=== PATIENT | female | born 1955 | race Caucasian/White ===

== ENCOUNTER 2018-06-09 14:57 | Outpatient (CLI) | payer OTHER, SELFPAY ==
--- NOTE | 2018-06-09 15:01 | DI.RAD_ITS ---
SYMPTOMS/DIAGNOSIS: COUGH, ? PNEUMONIA PA AND LATERAL CHEST: Comparison 11/19/15. The heart size and pulmonary vasculature are stable and within normal limits. There are infiltrates seen in the lower lobes bilaterally and a faint opacity in the right upper lobe. This may reflect multi-focal pneumonia. No effusions or pneumothoraces are identified. Degenerative changes are seen in the spine. IMPRESSION: Multi-focal pneumonia. A follow up chest x-ray is recommended to document complete resolution of the opacities particularly the right upper lobe opacity and to exclude other underlying etiologies.
== END 2018-06-09 15:17 ==
PROVIDERS: PCP Nurse Practitioner Family; Visit Provider Nurse Practitioner Family
DX: R05 Cough (principal); J18.9 Pneumonia, unspecified organism
CPT/HCPCS: 71046

== ENCOUNTER 2018-07-21 08:37 | Outpatient (CLI) | payer OTHER, SELFPAY ==
[2018-07-21 10:32] LABS: ALT 28 U/L (12-78); AST 23 U/L (15-37); Albumin 4.3 g/dL (3.4-5.0); Alkaline Phosphatase 80 U/L (46-116); Anion Gap 10.1 mmol/L (3-11); BUN 23 mg/dL (7-18); Bilirubin, Total 0.5 mg/dL (0.2-1.0); CO2 27.9 mmol/L (21.0-32.0); CREATININE 1.09 mg/dL (0.55-1.02); Calcium 9.4 mg/dL (8.5-10.1); Chloride 103 mmol/L (98-107); Estimated GFR 50.86 (mL/min/1.73m2); Glucose 76 mg/dL (70-100); Potassium 3.5 mmol/L (3.5-5.1); Sodium 141 mmol/L (136-145); TSH (W/Ref FT4) 6.47 uIU/mL (0.358-3.74); Total Protein 7.4 g/dL (6.4-8.2)
[2018-07-21 10:55] LABS: FREE T4 0.92 ng/dL (0.76-1.46)
== END 2018-07-21 08:57 ==
PROVIDERS: PCP Nurse Practitioner Family; Visit Provider Nurse Practitioner Family
DX: E03.9 Hypothyroidism, unspecified (principal); Z13.1 Encounter for screening for diabetes mellitus; Z51.81 Encounter for therapeutic drug level monitoring
CPT/HCPCS: 36415; 80053; 84439; 84443

== ENCOUNTER 2018-08-07 00:22 | Outpatient (CLI) | payer OTHER, SELFPAY ==
--- NOTE | 2018-08-07 10:39 | DI.RAD_ITS ---
SYMPTOM/DIAGNOSIS: F/U PNEUMONIA, J18.9 PA AND LATERAL CHEST: Comparison is made with 06/09/18. The heart size is normal. The lungs are well inflated and clear. The previously noted infiltrates have cleared. There is minimal residual left lower lobe scarring. IMPRESSION: Interval resolution of previously noted infiltrates.
== END 2018-08-07 00:42 ==
PROVIDERS: PCP Nurse Practitioner Family; Visit Provider Nurse Practitioner Family
DX: J18.9 Pneumonia, unspecified organism (principal)
CPT/HCPCS: 71046

== ENCOUNTER 2019-01-11 07:21 | Outpatient (CLI) | payer OTHER, SELFPAY ==
[2019-01-11 09:04] LABS: TSH (W/Ref FT4) 6.63 uIU/mL (0.358-3.74)
[2019-01-11 09:41] LABS: FREE T4 0.86 ng/dL (0.76-1.46)
== END 2019-01-11 07:41 ==
PROVIDERS: PCP Nurse Practitioner Family; Visit Provider Nurse Practitioner Family
DX: E03.9 Hypothyroidism, unspecified (principal)
CPT/HCPCS: 36415; 84439; 84443

== ENCOUNTER 2019-04-17 09:35 | Outpatient (CLI) | payer OTHER, SELFPAY ==
[2019-04-17 10:59] LABS: TSH (W/Ref FT4) 1.38 uIU/mL (0.36-3.74)
== END 2019-04-17 09:55 ==
PROVIDERS: PCP Nurse Practitioner Family; Visit Provider Nurse Practitioner Family
DX: E03.9 Hypothyroidism, unspecified (principal)
CPT/HCPCS: 36415; 80048; 80061; 84443

== ENCOUNTER 2020-01-18 08:14 | Outpatient (CLI) | payer OTHER, SELFPAY ==
[2020-01-20 17:23] LABS: COVID-19 RT-PCR Result NEGATIVE (Negative)
== END 2020-01-18 08:34 ==
PROVIDERS: PCP Nurse Practitioner Family; Visit Provider Ophthalmology
DX: Z11.59 Encounter for screening for other viral diseases (principal)
CPT/HCPCS: U0003

== ENCOUNTER 2020-04-14 01:26 | Outpatient (CLI) | payer OTHER, SELFPAY ==
[2020-04-14 11:18] LABS: Anion Gap 9.7 mmol/L (3-11); BUN 18 mg/dL (7-18); CO2 28.3 mmol/L (21.0-32.0); CREATININE 0.97 mg/dL (0.55-1.02); Calcium 9.1 mg/dL (8.5-10.1); Calculated LDL 164 mg/dL (<100); Chloride 102 mmol/L (98-107); Cholesterol 267 mg/dL (<200); Estimated GFR 57.82 (mL/min/1.73m2); Glucose 101 mg/dL (74-106); HDL Cholesterol 86 mg/dL (40-60); Potassium 4.2 mmol/L (3.5-5.1); Sodium 140 mmol/L (136-145); TSH (W/Ref FT4) 2.84 uIU/mL (0.36-3.74); Triglyceride 85 mg/dL (<150)
== END 2020-04-14 01:46 ==
PROVIDERS: PCP Nurse Practitioner Family; Visit Provider Nurse Practitioner Family
DX: E03.9 Hypothyroidism, unspecified (principal); E78.5 Hyperlipidemia, unspecified; Z13.1 Encounter for screening for diabetes mellitus
CPT/HCPCS: 36415; 80048; 80061; 84443

== ENCOUNTER 2020-10-29 03:43 | Outpatient (CLI) | payer MEDICARE, OTHER, SELFPAY ==
[2020-10-29 09:22] LABS: BUN 17 mg/dL (7-18); CREATININE 0.9 mg/dL (0.55-1.02); Calcium 9.3 mg/dL (8.5-10.1); Chloride 103 mmol/L (98-107); Glucose 92 mg/dL (74-106); Potassium 4.2 mmol/L (3.5-5.1); Sodium 140 mmol/L (136-145)
== END 2020-10-29 03:44 | disposition home or self-care (01) ==
LOC: LBO 03:43
PROVIDERS: PCP Nurse Practitioner Family; Visit Provider Nurse Practitioner Family
DX: N28.9 Disorder of kidney and ureter, unspecified (principal)
CPT/HCPCS: 80048

== ENCOUNTER 2020-11-25 01:40 | Outpatient (CLI) | payer MEDICARE, OTHER, SELFPAY ==
--- NOTE | 2020-11-25 07:15 | DI.RAD_ITS ---
Exam(s) XR SHOULDER LT COMPLETE 2+V EXAM: XR SHOULDER LT COMPLETE 2+V CLINICAL HISTORY: Chronic L should pain ?OA vs. [id number] PAIN LT SHOUDLER. TECHNIQUE: 2D digital imaging was performed. COMPARISON: No exams were available for comparison FINDINGS: BONES: No acute fracture is present. No bony destructive lesion is seen. JOINTS: No dislocation present. Minimal degenerative changes of the AC joint and glenohumeral joint. SOFT TISSUE: Normal. No tendon or joint space calcifications are seen. IMPRESSION: Mild degenerative changes. DATA REPOSITORY: RADIATION DOSE DELIVERED:
--- NOTE | 2020-11-25 13:15 | DI.DEXA_ITS ---
Exam(s) XR DEXA BONE DENSITY W/WO GERALD EXAM: XR DEXA BONE DENSITY W/WO GERALD CLINICAL HISTORY: Screening for osteoporosis Z13.820, Z78.0 ASYMPTOMATIC MENOPAUSAL STATE TECHNIQUE: [employer] C densitometer COMPARISON: No exams were available for comparison FINDINGS: Lateral view of the thoracic and lumbar spine shows no evidence of compression fractures. Bone mineral density measurements of the lumbar spine correspond to a total T-score of -2.0, consist ent with osteopenia. Bone mineral density measurements of the left hip correspond to a total T-score of -1.9. The femora l neck T-score is -2.0, consistent with osteopenia. The left forearm bone mineral density measurements correspond to a T-score of the distal 3rd of -2.4 , consistent with osteopenia.. IMPRESSION: Osteopenia of the lumbar spine, left hip and left forearm. 10 year risk of major osteoporotic fractu re 10 percent. Ten year risk of hip fracture 1.5 percent.
== END 2020-11-25 02:00 ==
PROVIDERS: PCP Nurse Practitioner Family; Visit Provider Nurse Practitioner Family
DX: M85.88 Other specified disorders of bone density and structure, other site (principal); Z78.0 Asymptomatic menopausal state; M25.512 Pain in left shoulder; M19.012 Primary osteoarthritis, left shoulder
CPT/HCPCS: 77080; 73030

== ENCOUNTER 2021-04-30 02:04 | Outpatient (CLI) | payer MEDICARE, SELFPAY ==
[2021-04-30 09:06] LABS: Anion Gap 7.9 mmol/L (3-11); BUN 18 mg/dL (7-18); CO2 29.1 mmol/L (21.0-32.0); CREATININE 0.9 mg/dL (0.55-1.02); Chloride 103 mmol/L (98-107); Glucose 94 mg/dL (74-106); Potassium 3.9 mmol/L (3.5-5.1); Sodium 140 mmol/L (136-145); TSH (W/Ref FT4) 2.72 uIU/mL (0.36-3.74)
== END 2021-04-30 02:05 | disposition home or self-care (01) ==
LOC: LBO 02:04
PROVIDERS: PCP Nurse Practitioner Family; Visit Provider Nurse Practitioner Family
DX: E03.9 Hypothyroidism, unspecified (principal); Z13.1 Encounter for screening for diabetes mellitus; Z87.448 Personal history of other diseases of urinary system
CPT/HCPCS: 36415; 80048; 84443

== ENCOUNTER 2021-07-07 02:17 | Outpatient (CLI) | payer MEDICARE, OTHER, SELFPAY ==
[2021-07-08 03:21] LABS: COVID-19 RT-PCR UVMMC Result Negative (Negative)
== END 2021-07-07 02:18 | disposition home or self-care (01) ==
PROVIDERS: PCP Nurse Practitioner Family; Visit Provider Nurse Practitioner Family
DX: Z20.822 Contact with and (suspected) exposure to COVID-19 (principal)
CPT/HCPCS: U0003; U0005

== ENCOUNTER 2022-03-25 03:49 | Outpatient (CLI) | payer MEDICARE, SELFPAY ==
[2022-03-25 08:02] LABS: Abs Immature Grans 0.01 10^3/uL (0.0-0.06); Absolute Basophil Count 0.02 10^3/uL (0.0-0.2); Absolute Eosinophil Count 0.13 10^3/uL (0.0-0.7); Absolute Neutrophil Count 3.53 10^3/uL (1.2-6.7); Basophils % 0.3; Eosinophils % 2.2; HCT 40.1 % (36.0-46.0); HGB 13.9 g/dL (11.2-15.7); Immature Grans % 0.2; Lymphocytes % 26.7; MCH 33.3 pg (27.0-33.0); MCHC 34.7 % (32.0-36.0); MCV 96 fL (80-95); MPV 9.8 fL (8.0-11.0); Monocytes % 11.7; Neutrophils % 58.9; Platelet Count 238 10^3/uL (130-400); RBC 4.17 10^6/uL (3.93-5.22); RDW 12.1 % (11.7-14.6); RDW-SD 42.8 fL; WBC 5.99 10^3/uL (4.4-10.8)
[2022-03-25 08:04] LABS: Prothrombin Time 9.9 sec (9.3-11.0)
[2022-03-25 09:09] LABS: ALT 29 U/L (14-59); AST 16 U/L (15-37); Alkaline Phosphatase 66 U/L (46-116); Anion Gap 7.3 mmol/L (3-11); BUN 19 mg/dL (7-18); Bilirubin, Total 0.5 mg/dL (0.2-1.0); CO2 30.7 mmol/L (21.0-32.0); CREATININE 0.8 mg/dL (0.55-1.02); Calcium 9.3 mg/dL (8.5-10.1); Chloride 101 mmol/L (98-107); Estimated GFR 81.21 (mL/min/1.73m2); Glucose 92 mg/dL (74-106); Potassium 3.7 mmol/L (3.5-5.1); Sodium 139 mmol/L (136-145); TSH (W/Ref FT4) 2.23 uIU/mL (0.36-3.74); Total Protein 7.7 g/dL (6.4-8.2)
== END 2022-03-25 03:50 | disposition home or self-care (01) ==
LOC: LBO 03:49
PROVIDERS: PCP Nurse Practitioner Family; Visit Provider Nurse Practitioner Family
DX: R23.3 Spontaneous ecchymoses (principal); R79.89 Other specified abnormal findings of blood chemistry; E03.9 Hypothyroidism, unspecified
CPT/HCPCS: 36415; 80053; 84443; 85025; 85610

== ENCOUNTER 2022-07-22 11:30 | Outpatient (REF) | payer MEDICARE, SELFPAY ==
[2022-07-24 01:43] LABS: COVID-19 RT-PCR UVMMC Result Negative (Negative)
[2022-07-24 01:47] LABS: Influenza A RNA Result Negative (Negative); Influenza B RNA Result Negative (Negative)
[2022-07-24 11:05] LABS: RSV RNA Result Positive (Negative)
== END 2022-07-22 11:31 | disposition home or self-care (01) ==
LOC: LBN 11:30
PROVIDERS: PCP Nurse Practitioner Family; Visit Provider Nurse Practitioner Family
DX: J02.9 Acute pharyngitis, unspecified (principal); R05.9 Cough, unspecified; R51.9 Headache, unspecified; Z20.822 Contact with and (suspected) exposure to COVID-19
CPT/HCPCS: 87631; U0003

== ENCOUNTER 2023-03-11 01:41 | Outpatient (CLI) | payer MEDICARE, SELFPAY ==
[2023-03-11 12:38] LABS: Anion Gap 7.8 mmol/L (3-11); BUN 17 mg/dL (7-18); CO2 26.2 mmol/L (21.0-32.0); CREATININE 1.1 mg/dL (0.55-1.02); Calcium 9.2 mg/dL (8.5-10.1); Chloride 104 mmol/L (98-107); Estimated GFR 55.07 (mL/min/1.73m2); Glucose 102 mg/dL (74-106); Potassium 3.8 mmol/L (3.5-5.1); Sodium 138 mmol/L (136-145); TSH (W/Ref FT4) 3.94 uIU/mL (0.36-3.74)
[2023-03-11 13:03] LABS: FREE T4 0.95 ng/dL (0.76-1.46)
== END 2023-03-11 01:42 | disposition home or self-care (01) ==
LOC: LOS 01:41
PROVIDERS: PCP Nurse Practitioner Family; Visit Provider Nurse Practitioner Family
DX: Z13.1 Encounter for screening for diabetes mellitus (principal); E03.9 Hypothyroidism, unspecified
CPT/HCPCS: 36415; 80048; 84439; 84443

== ENCOUNTER 2023-10-27 05:48 | Outpatient (CLI) | payer MEDICARE, SELFPAY ==
[2023-10-27 14:46] LABS: Anion Gap 11.5 mmol/L (3-11); BUN 23 mg/dL (7-18); CO2 26.5 mmol/L (21.0-32.0); CREATININE 1.2 mg/dL (0.55-1.02); Chloride 104 mmol/L (98-107); Estimated GFR 49.31 (mL/min/1.73m2); Glucose 135 mg/dL (74-106); Potassium 4.1 mmol/L (3.5-5.1); Sodium 142 mmol/L (136-145); TSH (W/Ref FT4) 1.85 uIU/mL (0.36-3.74)
== END 2023-10-27 05:49 | disposition home or self-care (01) ==
PROVIDERS: PCP Nurse Practitioner Family; Visit Provider Student in an Organized Health Care Education/Training Program
DX: N28.9 Disorder of kidney and ureter, unspecified (principal); R79.89 Other specified abnormal findings of blood chemistry
CPT/HCPCS: 80048; 84443

== ENCOUNTER 2024-04-02 03:09 | Outpatient (CLI) | payer MEDICARE, OTHER, SELFPAY ==
[2024-04-02 07:54] LABS: Abs Immature Grans 0.02 10^3/uL (0.0-0.06); Absolute Basophil Count 0.03 10^3/uL (0.0-0.2); Absolute Eosinophil Count 0.16 10^3/uL (0.0-0.7); Absolute Monocyte Count 0.79 10^3/uL (0.1-0.8); Absolute Neutrophil Count 2.95 10^3/uL (1.2-6.7); Basophils % 0.5 %; Eosinophils % 2.8 %; HCT 41.8 % (36.0-46.0); HGB 13.9 g/dL (11.2-15.7); Immature Grans % 0.4 %; Lymphocytes % 30.1 %; MCH 32.9 pg (27.0-33.0); MCHC 33.3 % (32.0-36.0); MCV 99 fL (80-95); MPV 10.2 fL (8.0-11.0); Neutrophils % 52.2 %; Platelet Count 234 10^3/uL (130-400); RBC 4.22 10^6/uL (3.93-5.22); RDW 12.7 % (11.7-14.6); RDW-SD 46.4 fL; WBC 5.65 10^3/uL (4.4-10.8)
[2024-04-02 08:39] LABS: ALT 28 U/L (14-59); AST 22 U/L (15-37); Albumin 3.9 g/dL (3.4-5.0); Alkaline Phosphatase 66 U/L (46-116); Anion Gap 10.3 mmol/L (3-11); BUN 19 mg/dL (7-18); Bilirubin, Total 0.62 mg/dL (0.2-1.0); CO2 29.7 mmol/L (21.0-32.0); CREATININE 1.1 mg/dL (0.55-1.02); Calcium 9.3 mg/dL (8.5-10.1); Calculated LDL 166 mg/dL (<100); Chloride 102 mmol/L (98-107); Cholesterol 276 mg/dL (<200); Estimated GFR 54.73 (mL/min/1.73m2); Glucose 96 mg/dL (74-106); HDL Cholesterol 94 mg/dL (40-60); Sodium 142 mmol/L (136-145); Total Protein 7.6 g/dL (6.4-8.2); Triglyceride 81 mg/dL (<150)
== END 2024-04-02 03:10 | disposition home or self-care (01) ==
LOC: LBO 03:10
PROVIDERS: Absent Provider Nurse Practitioner; PCP Nurse Practitioner Family; Referring Provider Nurse Practitioner; Visit Provider Nurse Practitioner
DX: E78.5 Hyperlipidemia, unspecified (principal); J45.909 Unspecified asthma, uncomplicated; E03.9 Hypothyroidism, unspecified; E11.9 Type 2 diabetes mellitus without complications
CPT/HCPCS: 36415; 80053; 80061; 83036; 85025

== ENCOUNTER 2024-06-26 03:38 | Outpatient (CLI) | payer MEDICARE, OTHER, SELFPAY ==
[2024-06-26 08:54] LABS: ALT 25 U/L (14-59); AST 19 U/L (15-37); Albumin 3.8 g/dL (3.4-5.0); Alkaline Phosphatase 72 U/L (46-116); Anion Gap 8.4 mmol/L (3-11); BUN 17 mg/dL (7-18); Bilirubin, Total 0.35 mg/dL (0.2-1.0); CO2 29.6 mmol/L (21.0-32.0); Calcium 9.2 mg/dL (8.5-10.1); Chloride 105 mmol/L (98-107); Estimated GFR 61.36 (mL/min/1.73m2); Glucose 96 mg/dL (74-106); Magnesium 2.1 mg/dL (1.8-2.4); Potassium 3.8 mmol/L (3.5-5.1); Sodium 143 mmol/L (136-145); TSH (W/Ref FT4) 2.77 uIU/mL (0.36-3.74); Total Protein 7.5 g/dL (6.4-8.2)
[2024-07-02 17:00] LABS: Apolipoprotein B, Serum 111 mg/dL (48-124); Beta VLDL Cholesterol Not Detected mg/dL (<15); Beta VLDL Triglycerides Not Detected mg/dL (<15); Cholesterol, Total, CDC 270 mg/dL; Chylomicron Cholesterol Not Detected; Chylomicron Triglycerides Not Detected; HDL Cholesterol, CDC 80 mg/dL (>=50); LDL Cholesterol 164 mg/dL; LDL Triglycerides 37 mg/dL (<=50); Lp(a) Cholesterol <5 mg/dL (<5); LpX Not detected; Triglycerides, CDC 101 mg/dL; VLDL Cholesterol 26 mg/dL (<30); VLDL Triglycerides 47 mg/dL (<120)
== END 2024-06-26 03:39 | disposition home or self-care (01) ==
LOC: LBO 03:38
PROVIDERS: PCP Nurse Practitioner Family; Referring Provider Nurse Practitioner Family; Visit Provider Nurse Practitioner Family
DX: R25.2 Cramp and spasm (principal); E78.5 Hyperlipidemia, unspecified; E78.00 Pure hypercholesterolemia, unspecified; E03.8 Other specified hypothyroidism
CPT/HCPCS: 36415; 80053; 80061; 82172; 82664; 83735; 84443

== ENCOUNTER 2024-07-27 11:46 | Outpatient (CLI) | payer MEDICARE, OTHER, SELFPAY ==
[2024-07-27 11:10] LABS: Anion Gap 6.8 mmol/L (3-11); BUN 17 mg/dL (7-18); CO2 27.2 mmol/L (21.0-32.0); CREATININE 0.9 mg/dL (0.55-1.02); Calcium 9.5 mg/dL (8.5-10.1); Chloride 106 mmol/L (98-107); Estimated GFR 69.64 (mL/min/1.73m2); Glucose 101 mg/dL (74-106); Potassium 3.7 mmol/L (3.5-5.1); Sodium 140 mmol/L (136-145)
[2024-08-03 09:33] LABS: Misc Referral (MAYO) See Comments
== END 2024-07-27 11:47 | disposition home or self-care (01) ==
LOC: LBO 11:55
PROVIDERS: PCP Nurse Practitioner Family; Visit Provider Nurse Practitioner Family
DX: R25.2 Cramp and spasm (principal); E78.5 Hyperlipidemia, unspecified
CPT/HCPCS: 80048; 85240; 85246; 85250; 85291; 85379; 85384; 85390; 85397; 85610; 85670; 85730

== ENCOUNTER 2024-08-14 02:05 | Outpatient (CLI) | payer MEDICARE, OTHER, SELFPAY ==
--- NOTE | 2024-08-14 | DI.US_ITS ---
Exam(s) US RENAL EXAM: US RENAL CLINICAL HISTORY: N18.30 Stage 3 chronic kidney disease,unspecified whether stage 3a or 3bCKD TECHNIQUE: Ultrasound of both kidneys performed using standard protocol. COMPARISON: US ABDOMEN ULTRASOUND (P) from 12/04/2015 FINDINGS: RIGHT KIDNEY: Measures 8.3 cm in length. No cysts evident. Normal cortical thickness and corticomedullary different iation .No solid masses No intrarenal calculi nor hydronephrosis. LEFT KIDNEY: Measures 9.2 cm in length. No cysts evident. Normal cortical thickness and corticomedullary differen tiaion. No solids masses. There is 4 x 6 mm echogenic focus superior pole the left kidney, possibly a small calculus. No hydronephrosis. URINARY BLADDER: Prevoid volume is 17.4 cc Postvoid volume is 0 cc No evidence of bladder mass nor diverticuli. Ureterovesical jets: Both identified and appear symmetrical IMPRESSION: 1. No significant ultrasound findings in the right kidney. 2. Small hyperechoic focus in the superior pole the left kidney which may possibly be a small nonobs tructive calculus at this level. No other focal left kidney findings and there is no hydronephrosis on either side 3. No obvious abnormality in the urinary bladder. DATA REPOSITORY:
== END 2024-08-14 02:25 ==
LOC: DI 02:05
PROVIDERS: PCP Nurse Practitioner Family; Visit Provider Registered Nurse Nephrology
DX: N18.30 Chronic kidney disease, stage 3 unspecified (principal)
CPT/HCPCS: 76770

== ENCOUNTER 2024-09-03 02:06 | Outpatient (CLI) | payer MEDICARE, OTHER, SELFPAY ==
[2024-09-07 17:24] LABS: Apolipoprotein B, Serum 72 mg/dL (48-124); Beta VLDL Cholesterol Not Detected mg/dL (<15); Beta VLDL Triglycerides Not Detected mg/dL (<15); Cholesterol, Total, CDC 201 mg/dL; Chylomicron Cholesterol Not Detected; Chylomicron Triglycerides Not Detected; HDL Cholesterol, CDC 94 mg/dL (>=50); LDL Cholesterol 90 mg/dL; LDL Triglycerides 28 mg/dL (<=50); Lp(a) Cholesterol <5 mg/dL (<5); LpX Not detected; Triglycerides, CDC 85 mg/dL; VLDL Cholesterol 17 mg/dL (<30); VLDL Triglycerides 37 mg/dL (<120)
== END 2024-09-03 02:07 | disposition home or self-care (01) ==
PROVIDERS: PCP Nurse Practitioner Family; Visit Provider Nurse Practitioner Family
DX: E78.00 Pure hypercholesterolemia, unspecified (principal)
CPT/HCPCS: 36415; 80061; 82172; 82664

== ENCOUNTER 2024-10-09 02:34 | Outpatient (CLI) | payer MEDICARE, OTHER, SELFPAY ==
[2024-10-09 09:46] LABS: Hemoglobin A1C 6.1 % (<5.7)
[2024-10-12 18:24] LABS: Fructosamine 227 mcmol/L (200 - 285)
== END 2024-10-09 02:35 | disposition home or self-care (01) ==
LOC: LBO 02:34
PROVIDERS: PCP Nurse Practitioner Family; Visit Provider Nurse Practitioner Family
DX: R73.03 Prediabetes (principal); N18.30 Chronic kidney disease, stage 3 unspecified
CPT/HCPCS: 36415; 82985; 83036

== ENCOUNTER 2025-01-25 12:43 | Outpatient (CLI) | payer MEDICARE, OTHER, SELFPAY ==
--- NOTE | 2025-01-25 | DI.CT_ITS ---
Exam(s) CT THORACIC LUMBAR SPINE WO EXAM: CT THORACIC LUMBAR SPINE WO CLINICAL HISTORY: Z91.81 History of falling,Status post fall. TECHNIQUE: Imaging Protocol: Axial computed tomography images with coronal and sagittal reformatted images were created and reviewed. COMPARISON: CR XR CHEST 2V PA LATERAL from 08/07/2018 CR XR DEXA BONE DENSITY W/WO GERALD from 11/25/2020 FINDINGS: Thoracic spine: Bones: No fractures or dislocations are seen. The alignment of the spine is normal including the cervicothoracic junction. Discs: Mild narrowing of the anterior aspect of the discs in the mid thoracic region with small endplate osteophytes. No evidence of central canal stenosis or neural foraminal narrowing. No evidence of disc herniation. Soft tissues: The soft tissues of the chest are unremarkable. Lumbar spine: Bones: No evidence of fracture in the lumbar spine or visualized portions of the pelvis. The alignment is normal. Discs: There is marked narrowing of the L4-5 disc space. There are small endplate osteophytes. There is mild disc bulging. There is mild narrowing of the L5-S1 disc space. There are mild endplate osteophytes and mild disc bulging. There is mild bilateral neural foraminal narrowing. The there is mild disc bulging at L3-4. There is no significant central canal stenosis at any level. No gross evidence of a disc herniation at any level. Soft tissues: Hematoma noted in the right posterior soft tissues measuring roughly measuring 13 by 12 by 3 cm. IMPRESSION: Thoracic spine: Mild degenerative changes of the mid thoracic spine. No acute abnormality. Lumbar spine: No fracture. Large right posterior soft tissue hematoma. Degenerative disc changes at L 4 5 and L5-S1. RADIATION DOSE DELIVERED: 1,160.62mGy.cm Total DLP DATA REPOSITORY: All CT scans at this facility are submitted to the National Radiology Data Registry (NRDR) Dose Index Registry (DIR) with the [employer] ([employer]). RADIATION OPTIMIZATION: All CT scans at this facility use at least one of these dose optimization techniques: automated exposure control; mA and/or kV adjustment per patient size (includes targeted exams where dose is matched to clinical indication); or iterative reconstruction.
== END 2025-01-25 13:03 ==
LOC: DI 12:44
PROVIDERS: PCP Nurse Practitioner Family; Visit Provider Family Medicine
DX: M51.34 Other intervertebral disc degeneration, thoracic region (principal); Z91.81 History of falling
CPT/HCPCS: 72128; 72131

== ENCOUNTER 2025-02-06 02:25 | Outpatient (CLI) | payer MEDICARE, OTHER, SELFPAY ==
[2025-02-06 12:31] LABS: Abs Immature Grans 0.01 10^3/uL (0.0-0.06); HCT 40.9 % (36.0-46.0); HGB 13.6 g/dL (11.2-15.7); Immature Grans % 0.1 %; MCH 32.3 pg (27.0-33.0); MCHC 33.3 % (32.0-36.0); MCV 97 fL (80-95); MPV 10.3 fL (8.0-11.0); Platelet Count 254 10^3/uL (130-400); RBC 4.21 10^6/uL (3.93-5.22); RDW 12.7 % (11.7-14.6); RDW-SD 45.1 fL; WBC 7.04 10^3/uL (4.4-10.8)
[2025-02-06 13:03] LABS: Albumin 4.2 g/dL (3.4-5.0); Anion Gap 10.2 mmol/L (3-11); BUN 24 mg/dL (7-18); CO2 25.8 mmol/L (21.0-32.0); Calcium 9.2 mg/dL (8.5-10.1); Chloride 103 mmol/L (98-107); Estimated GFR 60.98 (mL/min/1.73m2); Glucose 108 mg/dL (74-106); Potassium 4.1 mmol/L (3.5-5.1); Sodium 139 mmol/L (136-145)
[2025-02-06 13:47] LABS: Glucose Negative (Negative)
[2025-02-06 13:57] LABS: PROTEIN < 6.0 mg/dL
[2025-02-06 13:58] LABS: C & S Indicated? No; RBC Negative HPF (0-2); WBC 0-2 HPF (0-5)
== END 2025-02-06 02:26 | disposition home or self-care (01) ==
LOC: LBO 02:25
PROVIDERS: PCP Nurse Practitioner Family; Visit Provider Registered Nurse Nephrology
DX: N18.2 Chronic kidney disease, stage 2 (mild) (principal)
CPT/HCPCS: 36415; 80048; 81003; 81015; 82040; 82565; 83970; 84100; 84156; 85025

== ENCOUNTER → 2025-05-07 00:46 | Outpatient (CLI) | payer MEDICARE, OTHER, SELFPAY ==
--- NOTE | 2025-05-07 06:30 | DI.DEXA_ITS ---
Exam(s) XR DEXA BONE DENSITY W/WO GERALD EXAM: XR DEXA BONE DENSITY W/WO GERALD CLINICAL HISTORY: screening,ASYMPTOMATIC MENOPAUSAL STATE,Z78.0 TECHNIQUE: COMPARISON: CR XR DEXA BONE DENSITY W/WO GERALD from 11/25/2020 FINDINGS: Lateral Spine Image: Unremarkable. No compression deformities identified. Left hip: Total T-Score: -2.0. This compares to -1.9 on the prior examination. Total Z-Score: -0.5 T- and Z-scores: Findings are consistent with osteopenia. Lumbar Spine: Total T-Score: -2.1. This compares to -2.0 on the prior examination. Total Z-Score: -0.1 T- and Z-scores: Findings are consistent with osteopenia. There is osteoporosis seen in the left forearm in the proximal 3rd with a T- score of -2.7 and in the mid with a T-score of -2.5. These values have progressed since the prior examination from 2020. IMPRESSION: 1. No evidence of osteoporosis in the left hip or lumbar spine. 2. Osteoporosis is seen in the left forearm which is new compared to the prior examination.
== END ==
LOC: DI 00:47
PROVIDERS: PCP Nurse Practitioner Family; Visit Provider Nurse Practitioner Family
DX: Z13.820 Encounter for screening for osteoporosis (principal); Z78.0 Asymptomatic menopausal state; M81.0 Age-related osteoporosis without current pathological fracture
CPT/HCPCS: 77080

== ENCOUNTER 2025-05-08 08:27 | Outpatient (CLI) | payer MEDICARE, OTHER, SELFPAY ==
[2025-05-08 09:19] LABS: Hemoglobin A1C 6.1 % (<5.7)
[2025-05-08 10:23] LABS: Cholesterol 223 mg/dL (<200); Creatine Kinase 93 U/L (26-192); HDL Cholesterol 97 mg/dL (>or=50)
[2025-05-08 10:50] LABS: Microalb ug/mg Crea 58.3 ug/mg Cr
== END 2025-05-08 08:28 | disposition home or self-care (01) ==
LOC: LBO 08:30
PROVIDERS: PCP Nurse Practitioner Family; Visit Provider Nurse Practitioner Family
DX: R73.09 Other abnormal glucose (principal); E78.5 Hyperlipidemia, unspecified
CPT/HCPCS: 36415; 80061; 82550; 82043; 82570; 82985; 83036

== ENCOUNTER 2025-06-05 08:57 | Outpatient (CLI) | payer MEDICARE, OTHER, SELFPAY ==
[2025-06-05 12:04] LABS: Abs Immature Grans 0.03 10^3/uL (0.0-0.06); HCT 41.1 % (36.0-46.0); HGB 13.9 g/dL (11.2-15.7); Immature Grans % 0.4 %; MCH 32.5 pg (27.0-33.0); MCHC 33.8 % (32.0-36.0); MCV 96 fL (80-95); MPV 9.8 fL (8.0-11.0); Platelet Count 247 10^3/uL (130-400); RBC 4.28 10^6/uL (3.93-5.22); RDW 12.8 % (11.7-14.6); RDW-SD 45.6 fL; WBC 8.32 10^3/uL (4.4-10.8)
[2025-06-05 12:06] LABS: Glucose Negative (Negative)
[2025-06-05 12:37] LABS: Albumin 4.5 g/dL (3.2-5.0); Anion Gap 8.7 mmol/L (3-11); BUN 15 mg/dL (9-23); CO2 27.3 mmol/L (20.0-31.0); Calcium 9.8 mg/dL (8.3-10.6); Chloride 103 mmol/L (98-107); Glucose 96 mg/dL (74-106); Potassium 4.0 mmol/L (3.5-5.1); Sodium 139 mmol/L (136-145)
[2025-06-05 12:38] LABS: TSH (W/Ref FT4) 1.60 uIU/mL (0.55-4.78)
== END 2025-06-05 08:58 | disposition home or self-care (01) ==
LOC: LBO 08:58
PROVIDERS: PCP Nurse Practitioner Family; Visit Provider Registered Nurse Nephrology
DX: E03.9 Hypothyroidism, unspecified (principal); N18.2 Chronic kidney disease, stage 2 (mild)
CPT/HCPCS: 36415; 80048; 81003; 82040; 82565; 83970; 84100; 84156; 84443; 84550; 85025